=== PATIENT | female | born 1985 | race Caucasian/White ===

== ENCOUNTER 2018-04-19 09:36 | Inpatient (IN) | payer OTHER ==
[~2018-04-19] VITALS: Ht 172.7 cm; Wt 78.0 kg
[2018-04-19] MEDS ORDERED: ONDA4TAB11 PO (17:39)
[2018-04-19] MEDS ORDERED: FLUO-120 PO (17:39)
[2018-04-19] MEDS ORDERED: FLUO40CA49 PO (17:43)
[2018-04-19] MEDS ORDERED: VALA500T34 PO (17:43)
[2018-04-19] MEDS ORDERED: QUET25TA PO (17:43)
[2018-04-19] MEDS ORDERED: SUMA50TA GT (17:45)
[2018-04-19] MEDS ORDERED: OMEP20CA10 PO (17:47)
[2018-04-19] MEDS ORDERED: FAMO20TA8 PO (17:48)
[2018-04-19] MEDS ORDERED: DICY10SO PO (17:50)
[2018-04-19] MEDS ORDERED: CETI10TA14 PO (17:51)
[2018-04-19] MEDS ORDERED: CLON0.5T4 PO (17:53)
[2018-04-19] MEDS ORDERED: CHLO25CA22 PO (18:00)
[2018-04-19 18:26] LABS: *URINE HCG, QUAL NEGATIVE (NEGATIVE)
[2018-04-19] MEDS ORDERED: ALFA600T PO (18:40)
[2018-04-19] MEDS ORDERED: CYAN100096 PO (18:40)
[2018-04-19] MEDS ORDERED: [UNRECOGNIZED DRUG - OTHER] PO (18:40)
[2018-04-19] MEDS ORDERED: CALC650T29 PO (18:40)
[2018-04-19] MEDS ORDERED: ACET-2605 PO (18:40)
[2018-04-19] MEDS ORDERED: CHLO1TAB PO (18:40)
[2018-04-19] MEDS ORDERED: NAPR-1126 PO (18:40)
[2018-04-19] MEDS ORDERED: FOLI-85 PO (18:40)
[2018-04-19] MEDS ORDERED: IBUP-1953 PO (18:40)
[2018-04-19] MEDS ORDERED: LYSI100013 PO (18:40)
[2018-04-19] MEDS ORDERED: BENZ1LOZ58 MM (18:40)
[2018-04-19] MEDS ORDERED: DIME25TA2 PO (18:40)
[2018-04-19] MEDS ORDERED: [UNRECOGNIZED DRUG - CODE] PO (18:40)
[2018-04-19 18:43] LABS: *AMPHETAMINE, URINE NEGATIVE (NEGATIVE); *BARBITURATE, URINE NEGATIVE (NEGATIVE); *CANNABINOID, URINE NEGATIVE (NEGATIVE); *COCCAINE, URINE NEGATIVE (NEGATIVE); *OPIATE, URINE NEGATIVE (NEGATIVE); *PHENCYCLIDINE SCREEN,URINE NEGATIVE (NEGATIVE)
[2018-04-19 20:00] VITALS: BP 105/63
[2018-04-19] MEDS ORDERED: LOPERAMIDE HCL 2 MG CAPSULE PO PRN ×2 (20:45)
[2018-04-19] MEDS ORDERED: MIRALAX 17 GM POWD.PACK PO PRN (20:45)
[2018-04-19] MEDS ORDERED: diphenhydrAMINE 50 MG CAPSULE PO PRN (20:45)
[2018-04-19] MEDS ORDERED: MAGNESIUM HYDROXIDE 30 ML LIQUID UDC PO PRN (20:45)
[2018-04-19] MEDS ORDERED: LORAZEPAM 2 MG/1 ML VIAL IM PRN (20:45)
[2018-04-19] MEDS ORDERED: ONDANSETRON ODT 4 MG TAB.RAPDIS SL PRN (20:45)
[2018-04-19] MEDS ORDERED: MAG HYDROX/AL HYDROX/SIMETH 30 ML LIQUID UDC PO PRN (20:45)
[2018-04-19] MEDS ORDERED: IBUPROFEN 600 MG TABLET PO PRN (20:45)
[2018-04-19] MEDS ORDERED: CLONIDINE HCL 0.1 MG TABLET PO PRN (20:45)
[2018-04-19] MEDS ORDERED: LORAZEPAM 1 MG TABLET PO PRN ×2 (20:45)
[2018-04-19] MEDS ORDERED: ONDANSETRON 4 MG/2 ML VIAL IM PRN (20:45)
[2018-04-19] MEDS ORDERED: ACETAMINOPHEN 325 MG TABLET PO PRN (20:45)
[2018-04-19] MEDS ORDERED: THIAMINE HCL 200 MG/2 ML VIAL IM ONE (20:45)
[2018-04-19 20:53] LABS: BASOPHILS % (AUTO) 0.5 % (0.0-2.0); EOSINOPHILS % (AUTO) 0.3 % (0.0-7.0); HEMATOCRIT 35.2 % (31.2-41.9); HEMOGLOBIN 11.7 g/dL (10.9-14.3); LYMPHOCYTES # (AUTO) 1.8 K/uL (20.0-40.0); LYMPHOCYTES % (AUTO) 22.6 % (20.5-51.5); MEAN CORPUSCULAR HEMOGLOBIN 30.9 uug (24.7-32.8); MEAN CORPUSCULAR HGB CONC 33 g/dL (32.3-35.6); MEAN CORPUSCULAR VOLUME 93.2 fL (75.5-95.3); MONOCYTES # (AUTO) 0.5 K/uL (2.0-10.0); MONOCYTES % (AUTO) 6.2 % (0.0-11.0); NEUTROPHILS # (AUTO) 5.7 K/uL (1.8-8.9); NEUTROPHILS % (AUTO) 70.4 % (38.5-71.5); PLATELET COUNT (AUTO) 320 K/uL (179-408); RED BLOOD CELL COUNT(AUTO) 3.78 MIL/uL (3.63-4.92); WHITE BLOOD COUNT (AUTO) 8.2 K/uL (3.8-11.8)
[2018-04-19 21:03] LABS: ETHANOL < 3 MG/DL (0-0)
[2018-04-19 21:07] LABS: ALANINE AMINOTRANSFERASE 26 U/L (14-59); ALKALINE PHOSPHATASE 51 U/L (50-136); AMYLASE 57 U/L (25-115); ASPARTATE AMINOTRANSFERASE 19 U/L (15-37); BILIRUBIN,TOTAL 0.2 mg/dL (0.2-1.0); CARBON DIOXIDE 25 mmol/L (21-32); CHLORIDE 101 mmol/L (98-107); CREATININE 0.9 mg/dL (0.6-1.3); GLUCOSE 131 mg/dL (74-106); LIPASE 223 U/L (73-393); MAGNESIUM 1.9 mg/dL (1.8-2.4); POTASSIUM 3.6 mmol/L (3.5-5.1); TOTAL PROTEIN, SERUM 7.5 g/dL (6.4-8.2); UREA NITROGEN, BLOOD 12 mg/dL (7-18)
[2018-04-20] VITALS: BP 102/60
[2018-04-20] MEDS ORDERED: ACYC5CRE2 TP (00:39)
[2018-04-20] MEDS ORDERED: DOCO2CRE TP (00:39)
[2018-04-20 08:00] VITALS: BP 122/68
[2018-04-20] MEDS ORDERED: TUBERCULIN,PURIF.PROT.DERIV. 5 TU/0.1 ML TEST ID ONE (09:00)
[2018-04-20] MEDS: FOLIC ACID 1 MG TABLET PO SCH (09:22)
[2018-04-20] MEDS: MULTIVITAMINS,THERAPEUTIC TABLET PO SCH (09:22)
[2018-04-20] MEDS: THIAMINE HCL 100 MG TABLET PO SCH (09:22)
[2018-04-20 11:00] VITALS: BP 104/60
[2018-04-20] MEDS ORDERED: CALCIUM CARBONATE 750 MG PO PRN (11:00)
[2018-04-20] MEDS ORDERED: PROZAC PO SCH (11:15)
[2018-04-20 12:00] VITALS: BP 104/60
[2018-04-20] MEDS: VALACYCLOVIR HCL 500 MG TABLET PO SCH (12:27)
[2018-04-20] MEDS: FAMOTIDINE 20 MG TABLET PO SCH ×2 (12:27→17:36)
[2018-04-20] MEDS: CETIRIZINE HCL 10 MG TABLET PO SCH (12:28)
[2018-04-20] MEDS: FLUOXETINE HCL 20 MG CAPSULE PO SCH (12:28)
[2018-04-20] MEDS ORDERED: SUMATRIPTAN SUCCINATE 50 MG TABLET PO PRN (15:00)
[2018-04-20 16:00] VITALS: BP 114/63
[2018-04-20 20:00] VITALS: BP 110/71
[2018-04-21 08:00] VITALS: BP 106/56
[2018-04-21] MEDS: FLUOXETINE HCL 20 MG CAPSULE PO SCH (08:31)
[2018-04-21] MEDS: MULTIVITAMINS,THERAPEUTIC TABLET PO SCH (08:31)
[2018-04-21] MEDS: FOLIC ACID 1 MG TABLET PO SCH (08:31)
[2018-04-21] MEDS: VALACYCLOVIR HCL 500 MG TABLET PO SCH (08:31)
[2018-04-21] MEDS: CETIRIZINE HCL 10 MG TABLET PO SCH (08:31)
[2018-04-21] MEDS: FAMOTIDINE 20 MG TABLET PO SCH (08:32)
[2018-04-21] MEDS: THIAMINE HCL 100 MG TABLET PO SCH (08:32)
[2018-04-22 05:09] LABS: HEPATITIS B SURFACE AG Negative (Negative)
== END 2018-04-21 09:41 | disposition other institution (70) | DRG 895 ==
LOC: SRC 16:27
PROVIDERS: ADMIT Family Medicine Addiction Medicine; ATTEND Family Medicine Addiction Medicine
PROC: HZ2ZZZZ Detoxification Services for Substance Abuse Treatment (ICD-10-PCS; principal; 2018-04-19)
PROC: HZ41ZZZ Group Counseling for Substance Abuse Treatment, Behavioral (ICD-10-PCS; 2018-04-20)
DX: F10.230 Alcohol dependence with withdrawal, uncomplicated (principal); F33.1 Major depressive disorder, recurrent, moderate; Y90.9 Presence of alcohol in blood, level not specified; K58.0 Irritable bowel syndrome with diarrhea; Z72.0 Tobacco use; F41.9 Anxiety disorder, unspecified; F13.230 Sedative, hypnotic or anxiolytic dependence with withdrawal, uncomplicated; G43.909 Migraine, unspecified, not intractable, without status migrainosus; Z79.899 Other long term (current) drug therapy
CPT/HCPCS: 36415; 70030-TC; 80307; 80346; 83690; 83735; 84703; 85025; 86592; 86705; 86803; 87340; 87806; G0480; J3411